=== PATIENT | male | born 1985 | race Caucasian/White ===

== ENCOUNTER 2019-02-06 17:32 | Emergency (ER) | payer OTHER ==
[2019-02-06 17:45] VITALS: TEMP 98.7
[2019-02-06] MEDS ORDERED: LIDOCAINE 1% INJ 10MG/ML (20 ML MDV) SQ ONE (18:22)
--- NOTE | 2019-02-06 18:24 | ED ---
General Adult HPI - General Chief complaint: Wound/Laceration Stated complaint: hand lac Time Seen by Provider: 02/06/19 17:58 Source: patient Mode of arrival: ambulatory Limitations: no limitations - History of Present Illness Initial comments: Patient is a 33-year-old male presenting to the emergency department with a chief complaint of laceration. Patient reports he lacerated the medial aspect of the right hand. Patient reports he did it with a clean knife. Patient denies any foreign bodies in the region. Patient reports that this headache is up-to-date. Patient has full range of motion in all of his fingers of the right hand. Patient denies any numbness or tingling. Patient reports the pain is a 3 and throbbing. Patient denies taking medication to alleviate the symptoms. - Related Data Home Medications Medication Instructions Recorded Confirmed guaiFENesin [Mucinex] 600 mg PO BID PRN 02/06/19 02/06/19 Allergies Allergy/AdvReac Type Severity Reaction Status Date / Time No Known Allergies Allergy Verified 02/06/19 18:40 Review of Systems ROS Statement: Those systems with pertinent positive or pertinent negative responses have been documented in the HPI. ROS Other: All systems not noted in ROS Statement are negative. Past Medical History Past Medical History: No Reported History History of Any Multi-Drug Resistant Organisms: None Reported Past Surgical History: No Surgical Hx Reported Past Psychological History: No Psychological Hx Reported Smoking Status: Never smoker Past Alcohol Use History: Occasional Past Drug Use History: None Reported General Exam Limitations: no limitations General appearance: alert, in no apparent distress Head exam: Present: atraumatic, normocephalic, normal inspection Eye exam: Present: normal appearance Pupils: Present: normal accommodation ENT exam: Present: normal exam, mucous membranes moist Neck exam: Present: normal inspection, full ROM Respiratory exam: Present: normal lung sounds bilaterally Cardiovascular Exam: Present: regular rate, normal rhythm, normal heart sounds Extremities exam: Present: full ROM, normal capillary refill, other (+2 ulnar and radial pulses bilaterally.). Absent: normal inspection (1.5 cm laceration on the medial aspect of her right hand.), tenderness (. Mild tenderness at the site of injury.) Back exam: Present: normal inspection, full ROM Neurological exam: Present: alert, oriented X3 Psychiatric exam: Present: normal affect, normal mood Skin exam: Present: warm, intact, normal color Course Vital Signs 02/06/19 17:43 Temperature 98.7 F Pulse Rate 88 Respiratory 18 Rate Blood Pressure 145/93 O2 Sat by Pulse 96 Oximetry Procedures - Laceration Laceration #1 Consent Obtained: verbal consent Indication: laceration Site: hand Size (cm): 2 Description: linear, clean Depth: simple, single layer Sedation/Analgesia: none Anesthetic Used: lidocaine 1% Anesthesia Technique: local infiltration Amount (mls): 5 Pre-repair: irrigated extensively Type of Sutures: nylon Size of Sutures: 4-0 Number of Sutures: 5 Technique: simple, interrupted Patient Tolerated Procedure: well, no complications Medical Decision Making - Medical Decision Making Patient is a 33-year-old male presenting to the emergency department with chief complaint of a laceration. Physical examination there appears to be no damage to tendons or ligaments. Patient has full range of motion in all of his fingers. There is no active bleeding at this time. Tetanus is up-to-date. Aspiration site was repaired with 5 sutures. Patient tolerated the procedure well. Strict return parameters were thoroughly discussed with patient was understanding and agreeable. Patient advised to return to emergency Department in 7-10 days for suture removal. Patient advised to follow proper wound care. Case discussed physician. Disposition Clinical Impression: Laceration Disposition: HOME SELF-CARE Condition: Stable Instructions (If sedation given, give patient instructions): Care For Your Stitches (DC), Laceration (DC) Additional Instructions: Please return to emergency department in 7-10 days for suture removal or sooner if necessary. Please follow proper instructions for laceration and care for stitches. Is patient prescribed a controlled substance at d/c from ED?: No Referrals: None,Stated [Primary Care Provider] - 1-2 days Time of Disposition: 18:48
[2019-02-06 19:02] VITALS: BP 132/98; PULSE 80; RESP 16
== END 2019-02-06 19:02 | disposition home or self-care (01) ==
LOC: EC 17:32
DX: S61.411A Laceration without foreign body of right hand, initial encounter (principal); W26.0XXA Contact with knife, initial encounter; Y93.89 Activity, other specified
CPT/HCPCS: 99282; 12001; J2001